=== PATIENT | female | born 1975 | race Caucasian/White ===

== ENCOUNTER 2018-07-13 09:06 | Emergency (ER) | payer OTHER ==
[~2018-07-13] VITALS: Ht 162.6 cm; Wt 133.1 kg
--- NOTE | 2018-07-13 10:09 | NUR ---
PT IN ROOM, C/O RT LEG PAIN, DENIES INJURY
[2018-07-13] MEDS ORDERED: LYSI100010 PO (10:17)
[2018-07-13] MEDS ORDERED: CALC-192 PO (10:17)
[2018-07-13] MEDS ORDERED: CHOL200040 PO (10:17)
[2018-07-13] MEDS ORDERED: TOPI50TA8 PO (10:17)
[2018-07-13] MEDS ORDERED: ASPI-496 PO (10:17)
--- NOTE | 2018-07-13 11:28 | NUR ---
PT UP TO BR, AWAITING US, VSS, NO COMPLAINTS
--- NOTE | 2018-07-13 12:11 | NUR ---
PT IN ROOM, US IN PROGRESS
--- NOTE | 2018-07-13 12:33 | NUR ---
US COMPLETE, AWAITING RESULTS
--- NOTE | 2018-07-13 12:52 | NUR ---
RECEIVED BEDSIDE REPORT FROM FELICIA VIRK. PT SITTING UP IN BED. STATED CAN TAKE IBU AT HOME IF GOING TO BE DCd. ALL RESULTS BACK, PT UP FOR RECHECK. FAMILY AT BEDSIDE.
[2018-07-13 13:27] VITALS: BP 130/82
== END 2018-07-13 13:29 | disposition home or self-care (01) ==
LOC: ED 13:20
DX: R10.31 Right lower quadrant pain (principal); E83.119 Hemochromatosis, unspecified
CPT/HCPCS: 99284

== ENCOUNTER 2018-07-23 18:39 | Emergency (ER) | payer OTHER ==
[~2018-07-23] VITALS: Ht 165.1 cm; Wt 131.6 kg
[~2018-07-23 18:39] MED LIST: ASPI-496 PO; CALC-192 PO; CHOL200040 PO; LYSI100010 PO; TOPI50TA8 PO
[2018-07-23] MEDS ORDERED: KETOROLAC 30 MG/1 ML IVPush ONE (19:00)
[2018-07-23] MEDS ORDERED: DIPHENHYDRAMINE 50 MG/ML, 1ML IVPush ONE (19:00)
[2018-07-23] MEDS ORDERED: PROCHLORPERAZINE 5 MG/ML, 2ML IVPush ONE (19:00)
--- NOTE | 2018-07-23 19:00 | NUR ---
THIS IS A 42 YO FEMALE WHO PRESENTS TO THE ER BY [facility] C/O "MIGRAINE INDUCED SEIZURE" TODAY LASTING APPROX 10 SECOND. SEIZURE WAS WITNESSED BY WHO CAUGHT THE PT. PT WAS AO X 4 UPON ARRIVAL OF EMS. PT WAS MEDICATED WITH 600 MG IBUPROFEN BY EMS DIAPER MACHINE TENDER. PT CURRENTLY AO X 4. NO ORAL TRAUMA NOTED. NO INCONTINENCE. PT C/O 02/17 MIGRAINE. PT PHOTOSENSITIVE. HX OF SAME. AT BEDSIDE. PT ON CONT BP, CARDIAC AND O2 MONITORS. CALL LIGHT WITHIN REACH. WILL CONT TO MONITOR PT.
[2018-07-23 19:01] VITALS: BP 134/69
[2018-07-23 19:18] LABS: BASOPHILS # (AUTO) 0.01 x10^3/uL (0-0.1); BASOPHILS % (AUTO) 0 % (0-1); EOSINOPHILS # (AUTO) 0.14 x10^3/uL (0-0.4); EOSINOPHILS % (AUTO) 1 % (1-7); LYMPHOCYTES # (AUTO) 2.14 x10^3/uL (1-3.4); LYMPHOCYTES % (AUTO) 19 % (22-44); MD NO; MEAN CORPUSCULAR HEMOGLOBIN 31.1 pg (27.0-34.8); MEAN CORPUSCULAR HGB CONC 34.3 g/dL (32.4-35.8); MEAN CORPUSCULAR VOLUME 90.5 fL (80-100); MEAN PLATELET VOLUME 8.2 fL (7.4-10.4); MONOCYTES % (AUTO) 2 % (2-9); NEUTROPHILS # (AUTO) 8.96 x10^3/uL (1.8-6.8); NEUTROPHILS % (AUTO) 78 % (42-75); PLATELET COUNT 277 x10^3/uL (130-400); RED BLOOD COUNT 4.89 x10^6/uL (3.82-5.3); RED CELL DISTRIBUTION WIDTH 13.1 % (9.6-15.2)
[2018-07-23 19:25] LABS: ALBUMIN 3.8 g/dL (3.4-5.0); ANION GAP 8 mmol/L (5-15); CALCIUM 9.3 mg/dL (8.5-10.1); CHLORIDE 111 mmol/L (98-107); CREATININE 0.97 mg/dL (0.55-1.02)
[2018-07-23] MEDS ORDERED: KETOROLAC 30 MG/1 ML ONE (19:33)
[2018-07-23] MEDS ORDERED: PROCHLORPERAZINE 5 MG/ML, 2ML ONE (19:33)
[2018-07-23] MEDS ORDERED: DIPHENHYDRAMINE 50 MG/ML, 1ML ONE (19:33)
--- NOTE | 2018-07-23 19:50 | NUR ---
PT CURRENTLY RESTING ON [employer] IN QUIET, DARK ROOM. PT AO X 4. SKIN PWD. RESP EVEN AND EQAUL. PT REPORTS 02/17 MIGRAINE. PT MEDICATED ORDERED FOR PAIN. AT BEDSIDE. PT ON CONT BP AND O2 MONITORS. CALL LIGHT WITHIN REACH. WILL CONT TO MONITOR PT.
--- NOTE | 2018-07-23 20:53 | NUR ---
TASK RN: PT REPORTS IMPROVEMENT IN GRIER. PT A&OX4; SPEECH CLEAR, FACE SYMMETRICAL, +STRENGTH X4. DC EDUCATION PROVIDED TO PT AND SO, WHO DEMONSTRATE UNDERSTANDING. PT AMBULATED STEADILY TO DC WITH RN. SO TO TRANSPORT PT HOME
== END 2018-07-23 20:56 | disposition home or self-care (01) ==
LOC: ED 20:16
DX: G43.009 Migraine without aura, not intractable, without status migrainosus (principal); F44.5 Conversion disorder with seizures or convulsions
CPT/HCPCS: 36415; 80048; 82040; 85025; 96374; 96375; 99283; J0780; J1200; J1885